=== PATIENT | male | born 1995 | race Caucasian/White ===

== ENCOUNTER 2018-10-29 04:25 | Emergency (ER) | payer OTHER ==
[~2018-10-29] VITALS: Ht 175.3 cm; Wt 59.0 kg
[2018-10-29] MEDS ORDERED: PREDNISONE 10 M10 M1 PO (04:34)
[2018-10-29] MEDS ORDERED: ZYRTEC10 MG PO (04:34)
[2018-10-29] MEDS ORDERED: ADVAIR HFA 230M12 GM INH (04:34)
[2018-10-29] MEDS ORDERED: PROAIR HFA8.5 GM INH (04:35)
[2018-10-29] MEDS ORDERED: ALBUTEROL2.5 MG/31 INH (04:35)
[2018-10-29] MEDS ORDERED: PREDNISONE50 MG PO (05:19)
[2018-10-29 05:38] VITALS: BP 113/67
== END 2018-10-29 05:39 | disposition home or self-care (01) ==
LOC: M.ERS 04:25
DX: J45.901 Unspecified asthma with (acute) exacerbation (principal)

== ENCOUNTER 2018-10-31 03:23 | Emergency (ER) | payer OTHER ==
[~2018-10-31] VITALS: Ht 175.3 cm; Wt 59.0 kg
[~2018-10-31 03:23] MED LIST: ADVAIR HFA 230M12 GM INH; ALBUTEROL2.5 MG/31 INH; PREDNISONE 10 M10 M1 PO; PREDNISONE50 MG PO; PROAIR HFA8.5 GM INH; ZYRTEC10 MG PO
[2018-10-31 04:41] VITALS: BP 111/75
== END 2018-10-31 04:41 | disposition home or self-care (01) ==
LOC: M.ERS 03:23
DX: J45.901 Unspecified asthma with (acute) exacerbation (principal)

== ENCOUNTER 2018-11-11 23:04 | Emergency (ER) | payer OTHER ==
[~2018-11-11] VITALS: Ht 175.3 cm; Wt 59.0 kg
[2018-11-12] MEDS ORDERED: PREDNISONE50 MG PO (00:03)
[2018-11-12 00:13] VITALS: BP 109/61
== END 2018-11-12 00:13 | disposition home or self-care (01) ==
LOC: M.ERS 23:04
DX: J45.901 Unspecified asthma with (acute) exacerbation (principal)